=== PATIENT | female | born 1980 | race Caucasian/White ===

== ENCOUNTER → 2020-05-14 | Outpatient (CLI) | payer OTHER ==
[2020-05-14 14:27] LABS: BASOPHILS % (AUTO) 0 % (0-1); EOSINOPHILS % (AUTO) 1 % (1-7); LYMPHOCYTES % (AUTO) 25 % (22-44); MD NO; MEAN CORPUSCULAR HEMOGLOBIN 30.7 pg (27.0-34.8); MEAN CORPUSCULAR HGB CONC 34.1 g/dL (32.4-35.8); MEAN PLATELET VOLUME 8.2 fL (7.4-10.4); MONOCYTES % (AUTO) 8 % (2-9); NEUTROPHILS % (AUTO) 66 % (42-75); PLATELET COUNT 267 x10^3/uL (130-400); RED BLOOD COUNT 4.54 x10^6/uL (3.82-5.3); RED CELL DISTRIBUTION WIDTH 12.1 % (9.6-15.2)
== END | disposition home or self-care (01) ==
LOC: STAR 13:47
PROVIDERS: ATTEND Obstetrics & Gynecology
DX: Z01.812 Encounter for preprocedural laboratory examination (principal); N93.9 Abnormal uterine and vaginal bleeding, unspecified; R10.2 Pelvic and perineal pain; N83.201 Unspecified ovarian cyst, right side; Z20.822 Contact with and (suspected) exposure to COVID-19
CPT/HCPCS: 36415; 84703; 85025; U0003

== ENCOUNTER 2020-05-18 09:54 | Day surgery (SDC) | payer OTHER ==
[~2020-05-18] VITALS: Ht 165.1 cm; Wt 64.4 kg
[~2020-05-18 09:54] MED LIST: BUPIVACAINE/PF 0.25% ONE; EPINEPHRINE 1 MG/ML, 1ML ONE
[2020-05-18] MEDS ORDERED: NO MEDS PER PT (10:24)
[2020-05-18 10:27] LABS: HCG UR SG 1.014 (1.003-1.030)
[2020-05-18] MEDS ORDERED: CHLORHEXIDINE 15 ML UDC PO ONE (10:30)
[2020-05-18] MEDS ORDERED: LACTATED RINGERS 1,000 ML IV SCH (10:30)
[2020-05-18] MEDS ORDERED: LIDOCAINE-MPF 1%, 2ML INFIL ONE (10:30)
[2020-05-18] MEDS ORDERED: MIDAZOLAM 1 MG/ML, 2ML ONE (11:23)
[2020-05-18] MEDS ORDERED: FENTANYL PF 250 MCG/5ML ONE (11:23)
[2020-05-18] MEDS ORDERED: ROCURONIUM 10MG/ML,5ML ONE (11:26)
[2020-05-18] MEDS ORDERED: PROPOFOL 10 MG/ML, 20ML ONE (11:26)
[2020-05-18] MEDS ORDERED: DEXAMETHASONE 4 MG/ML, 5ML ONE (11:26)
[2020-05-18] MEDS ORDERED: LABETALOL 5MG/ML, 20ML IV PRN (12:00)
[2020-05-18] MEDS ORDERED: MEPERIDINE/PF 25MG/0.5ML IVPush PRN (12:00)
[2020-05-18] MEDS ORDERED: ONDANSETRON 2MG/ML, 2ML IVPush PRN ×2 (12:00→17:00)
[2020-05-18] MEDS ORDERED: FENTANYL PF 100 MCG/2ML IV PRN (12:00)
[2020-05-18] MEDS ORDERED: hydrALAzine 20 MG/ML, 1ML IV PRN (12:00)
[2020-05-18] MEDS ORDERED: HYDROmorphone 1 MG/ML, 1ML INJ IVPush PRN (12:00)
[2020-05-18] MEDS ORDERED: OXYcodone 5 MG/5 ML ORAL.SOL UDC PO PRN (12:00)
[2020-05-18] MEDS ORDERED: ACETAMINOPHEN 325 MG TABLET PO PRN (12:00)
[2020-05-18] MEDS ORDERED: PROMETHAZINE 25 MG/ML, 1ML IVPush PRN (12:00)
[2020-05-18] MEDS ORDERED: CEFAZOLIN 1,000 MG ONE (12:01)
[2020-05-18] MEDS ORDERED: INDIGO CARMINE 0.8%, 5ML ONE (12:04)
[2020-05-18] MEDS ORDERED: KETOROLAC 30 MG/1 ML ONE (12:17)
[2020-05-18] MEDS ORDERED: BUPIVACAINE/PF-EPI 0.25% 1:200K IM ONE (12:56)
[2020-05-18] MEDS ORDERED: ONDANSETRON 2MG/ML, 2ML ONE (13:23)
[2020-05-18] MEDS ORDERED: ONDANSETRON ODT 4 MG ONE (16:43)
[2020-05-18] MEDS ORDERED: ONDANSETRON ODT 4 MG PO ONE (17:00)
== END 2020-05-18 17:10 | disposition home or self-care (01) ==
LOC: OUT 09:54
PROVIDERS: ATTEND Obstetrics & Gynecology
DX: N93.8 Other specified abnormal uterine and vaginal bleeding (principal); N83.291 Other ovarian cyst, right side; R10.2 Pelvic and perineal pain; Z72.89 Other problems related to lifestyle
CPT/HCPCS: 58571; 81025; 88307; J0171; J0690; J1100; J1885; J2250; J2405; J2704; J3010; Q0162